=== PATIENT | female | born 1995 | race Caucasian/White ===

== ENCOUNTER 2021-02-08 11:16 | Inpatient (IN) | payer OTHER ==
[~2021-02-08] VITALS: Ht 154.9 cm; Wt 59.9 kg
[2021-02-08] MEDS ORDERED: PRENATAL TABLE1 EAC1 (14:31)
== END 2021-02-10 10:01 | disposition home or self-care (01) | DRG 832 ==
LOC: NST 11:16 → LDR 12:26
PROVIDERS: ADMIT Obstetrics & Gynecology Maternal & Fetal Medicine; ATTEND Obstetrics & Gynecology Maternal & Fetal Medicine
PROC: 4A1HXFZ Monitoring of Products of Conception, Cardiac Rhythm, External Approach (ICD-10-PCS; principal; 2021-02-08)
PROC: BT4JZZZ Ultrasonography of Kidneys and Bladder (ICD-10-PCS; 2021-02-08)
DX: O47.03 False labor before 37 completed weeks of gestation, third trimester (principal); N13.39 Other hydronephrosis; O99.891 Other specified diseases and conditions complicating pregnancy; Z3A.32 32 weeks gestation of pregnancy

== ENCOUNTER 2021-02-21 08:05 | Outpatient (CLI) | payer OTHER ==
[~2021-02-21 08:05] MED LIST: PRENATAL TABLE1 EAC1
== END 2021-02-21 08:58 | disposition home or self-care (01) ==
LOC: NST 08:05
PROVIDERS: ATTEND Obstetrics & Gynecology
DX: Z34.83 Encounter for supervision of other normal pregnancy, third trimester (principal)

== ENCOUNTER 2021-03-15 12:45 | Inpatient (IN) | payer OTHER ==
[~2021-03-15] VITALS: Ht 154.9 cm; Wt 64.4 kg
== END 2021-04-07 12:37 | disposition home or self-care (01) | DRG 807 ==
LOC: OB/GYN 03-29 12:45 → SURH 03-29 12:45 → SURG-SUITE 04-05 09:37 → EDBD 04-05 09:37 → LDR 04-05 09:37 → SURG-SUITE 04-05 12:27 → EDBD 04-07 12:37
PROVIDERS: ADMIT Obstetrics & Gynecology; ATTEND Obstetrics & Gynecology
PROC: 10E0XZZ Delivery of Products of Conception, External Approach (ICD-10-PCS; principal; 2021-04-05)
PROC: 0HQ9XZZ Repair Perineum Skin, External Approach (ICD-10-PCS; 2021-04-05)
PROC: 4A1HXFZ Monitoring of Products of Conception, Cardiac Rhythm, External Approach (ICD-10-PCS; 2021-04-05)
DX: O70.0 First degree perineal laceration during delivery (principal); Z37.0 Single live birth; Z3A.40 40 weeks gestation of pregnancy

== ENCOUNTER 2021-03-19 17:01 | Outpatient (CLI) | payer OTHER | END 2021-03-20 10:12 | disposition home or self-care (01) | LOC: OBS/DEL 17:01 | PROVIDERS: ATTEND Obstetrics & Gynecology | DX: O47.1 False labor at or after 37 completed weeks of gestation (principal); Z3A.37 37 weeks gestation of pregnancy; Z20.822 Contact with and (suspected) exposure to COVID-19 ==

== ENCOUNTER 2021-03-31 07:48 | Outpatient (CLI) | payer OTHER | END 2021-03-31 08:21 | disposition home or self-care (01) | LOC: NST 07:48 | PROVIDERS: ATTEND Obstetrics & Gynecology | DX: Z34.83 Encounter for supervision of other normal pregnancy, third trimester (principal) ==

== ENCOUNTER → 2021-04-18 | Emergency (ER) | payer OTHER | END | disposition left against medical advice (07) | LOC: ER 21:18 | DX: Z53.21 Procedure and treatment not carried out due to patient leaving prior to being seen by health care provider (principal) ==